=== PATIENT | male | born 1950 | race Caucasian/White ===

== ENCOUNTER → 2020-04-16 | Outpatient (CLI) | payer SELFPAY ==
[2020-04-16 12:10] LABS: HEMATOCRIT 34.8 % (42.0-52.0); MEAN CELL VOLUME 89.2 fl (80.0-94.0); MEAN CORPUSCULAR HGB 28.5 pg (27.0-31.0); MEAN CORPUSCULAR HGB CONC 31.9 g/dl (33.0-37.0); MEAN PLATELET VOLUME 9.3 fl (9.6-12.3); RED BLOOD COUNT 3.9 10*6/uL (4.50-5.90); RED CELL DISTRI WIDTH 18.6 % (0-14.5)
[2020-04-16 12:37] LABS: ALBUMIN 2.3 gm/dl (3.1-4.5); BUN 20 mg/dl (7-24); CHLORIDE 102 mmol/L (98-107); CHOLESTEROL 443 mg/dL (<200); CREATININE 0.99 mg/dL (0.70-1.30); LIPASE 161 U/L (73-393); POTASSIUM 4.2 mmol/L (3.5-5.1); SGOT/AST 161 IU/L (3-35); SGPT/ALT 86 U/L (12-78); SODIUM 135 mmol/L (136-145); TOTAL PROTEIN 7.4 gm/dL (6.4-8.2); TRIGLYCERIDES 213 mg/dl (<150); VLDL CHOLESTEROL 43 mg/dL (6-40)
[2020-04-16 12:50] LABS: HDL CHOLESTEROL 17 mg/dl (40-60); LDL CHOLESTEROL 383 mg/dL (9-159)
[2020-04-16 12:51] LABS: ALKALINE PHOSPHATASE 1130 U/L (45-117)
[2020-04-17 11:10] LABS: HEP B CORE AB, IGM Negative (Negative); HEPATITIS B SURFACE AG Negative (Negative); HEPATITIS C VIRUS ANTIBODY <0.1 s/co (0.0-0.9)
[2020-04-18 00:06] LABS: TESTOSTERONE FREE, (DIRECT) 14.4 pg/mL (6.6-18.1)
== END | disposition home or self-care (01) ==
LOC: LAB 11:43
PROVIDERS: ATTEND Family Medicine
DX: Z12.5 Encounter for screening for malignant neoplasm of prostate (principal); R53.83 Other fatigue; R10.9 Unspecified abdominal pain; R11.0 Nausea; R63.4 Abnormal weight loss

== ENCOUNTER 2020-04-22 18:20 | Emergency (ER) | payer MEDICARE ==
[~2020-04-22] VITALS: Ht 165.1 cm; Wt 62.6 kg
[2020-04-22 19:36] LABS: HEMATOCRIT 35.4 % (42.0-52.0); MEAN CELL VOLUME 89.8 fl (80.0-94.0); MEAN CORPUSCULAR HGB 28.4 pg (27.0-31.0); MEAN CORPUSCULAR HGB CONC 31.6 g/dl (33.0-37.0); MEAN PLATELET VOLUME 9.2 fl (9.6-12.3); PLATELET COUNT AUTOMATED 469 10*3/uL (130-400); RED BLOOD COUNT 3.94 10*6/uL (4.50-5.90); WHITE BLOOD COUNT 4.9 10*3/uL (4.8-10.8)
[2020-04-22 19:53] LABS: ALBUMIN 2.2 gm/dl (3.1-4.5); BUN 17 mg/dl (7-24); CHLORIDE 103 mmol/L (98-107); CREATININE 1.03 mg/dL (0.70-1.30); LIPASE 116 U/L (73-393); POTASSIUM 4.7 mmol/L (3.5-5.1); SGOT/AST 125 IU/L (3-35); SGPT/ALT 77 U/L (12-78); SODIUM 136 mmol/L (136-145); TOTAL PROTEIN 7.2 gm/dL (6.4-8.2)
[2020-04-22 19:58] LABS: PLATELET SUFFICIENCY HIGH (NORMAL); TOTAL CELLS COUNTED 100 #CELLS
[2020-04-22 19:59] LABS: POLYCHROMASIA SLIGHT
[2020-04-22 20:03] LABS: ALKALINE PHOSPHATASE 992 U/L (45-117)
[2020-04-22 22:11] LABS: BILIRUBIN 3+ (Negative); BLOOD Negative (Negative); CLARITY Clear (Clear); COLOR Dark Yellow (Yellow); GLUCOSE Negative (Negative); KETONE Negative (Negative); LEUKO ESTERASE 1+ (Negative); NITRITE Positive (Negative)
[2020-04-22 22:26] LABS: BACTERIA TRACE
== END 2020-04-23 00:57 | disposition short-term general hospital (02) ==
LOC: ED 18:20
PROVIDERS: Nurse Practitioner Family
DX: K56.600 Partial intestinal obstruction, unspecified as to cause (principal); C79.9 Secondary malignant neoplasm of unspecified site

== ENCOUNTER 2020-04-29 10:39 | Emergency (ER) | payer MEDICARE ==
[~2020-04-29] VITALS: Ht 165.1 cm; Wt 74.4 kg
[2020-04-29 11:53] LABS: HEMATOCRIT 31.8 % (42.0-52.0); MEAN CELL VOLUME 92.2 fl (80.0-94.0); MEAN CORPUSCULAR HGB 28.7 pg (27.0-31.0); MEAN CORPUSCULAR HGB CONC 31.1 g/dl (33.0-37.0); MEAN PLATELET VOLUME 9.5 fl (9.6-12.3); PLATELET COUNT AUTOMATED 430 10*3/uL (130-400); RED BLOOD COUNT 3.45 10*6/uL (4.50-5.90); RED CELL DISTRI WIDTH 19.8 % (0-14.5); WHITE BLOOD COUNT 17.1 10*3/uL (4.8-10.8)
[2020-04-29 12:05] LABS: ALBUMIN 1.4 gm/dl (3.1-4.5); BUN 11 mg/dl (7-24); CHLORIDE 107 mmol/L (98-107); CREATININE 0.87 mg/dL (0.70-1.30); POTASSIUM 3.3 mmol/L (3.5-5.1); SGOT/AST 137 IU/L (3-35); SGPT/ALT 86 U/L (12-78); SODIUM 140 mmol/L (136-145)
[2020-04-29 12:07] LABS: ALKALINE PHOSPHATASE 847 U/L (45-117)
[2020-04-29 12:13] LABS: TOTAL CELLS COUNTED 100 #CELLS
[2020-04-29 12:14] LABS: PLATELET SUFFICIENCY HIGH (NORMAL)
[2020-04-29 14:19] LABS: BILIRUBIN 3+ (Negative); BLOOD Negative (Negative); CLARITY Clear (Clear); COLOR Dark Yellow (Yellow); GLUCOSE Negative (Negative); KETONE Trace (Negative); LEUKO ESTERASE 1+ (Negative); NITRITE Positive (Negative); PH 5.5 (4.5-8.0)
[2020-04-29 14:32] LABS: BACTERIA 3+; EPITHELIAL CELLS 0-2
== END 2020-04-29 13:39 | disposition home or self-care (01) ==
LOC: ED 10:39
PROVIDERS: Emergency Medicine
DX: R60.1 Generalized edema (principal)

== ENCOUNTER 2020-06-22 14:45 | Emergency (ER) | payer MEDICARE, MEDICAID ==
[~2020-06-22] VITALS: Ht 165.1 cm; Wt 45.4 kg
[2020-06-22 17:00] LABS: BASO % 0.1 % (0.0-1.0); HEMATOCRIT 40.7 % (42.0-52.0); LYMPH % 13.2 % (27.0-41.0); MEAN CELL VOLUME 93.3 fl (80.0-94.0); MEAN CORPUSCULAR HGB CONC 33.2 g/dl (33.0-37.0); MEAN PLATELET VOLUME 9.2 fl (9.6-12.3); MONO # 0.4 10*3/uL (0.1-1.0); MONO % 5.3 % (3.0-9.0); NEUT # 5.9 10*3/uL (2.3-7.9); NEUT % 80.9 % (47.0-73.0); PLATELET COUNT AUTOMATED 218 10*3/uL (130-400); RED BLOOD COUNT 4.36 10*6/uL (4.50-5.90); RED CELL DISTRI WIDTH 21.9 % (0-14.5); WHITE BLOOD COUNT 7.3 10*3/uL (4.8-10.8)
[2020-06-22 17:11] LABS: ACT PARTIAL THROMBO TIME 30.5 SECONDS (20.0-32.1); INTERNATIONAL NORM RATIO 1.5 (2.0-3.5)
[2020-06-22 17:17] LABS: ALBUMIN 1.8 gm/dl (3.1-4.5); ALKALINE PHOSPHATASE 359 U/L (45-117); BUN 40 mg/dl (7-24); CHLORIDE 107 mmol/L (98-107); CPK 60 U/L (39-308); CREATININE 1.11 mg/dL (0.70-1.30); SGOT/AST 65 IU/L (3-35); SGPT/ALT 44 U/L (12-78); SODIUM 141 mmol/L (136-145); TOTAL PROTEIN 5.1 gm/dL (6.4-8.2)
[2020-06-22 17:21] LABS: TROPONIN I < 0.015 ng/ml (<0.045)
== END 2020-06-22 21:23 | disposition home or self-care (01) ==
LOC: ED 14:45
PROVIDERS: Emergency Medicine
DX: R64 Cachexia (principal); C80.1 Malignant (primary) neoplasm, unspecified; E86.0 Dehydration; E87.6 Hypokalemia